=== PATIENT | male | born 1960 | race Caucasian/White ===

== ENCOUNTER 2018-10-12 10:58 | Day surgery (SDC) | payer BC, SELFPAY ==
[2018-10-08 10:46] LABS: Anion Gap 10 (5-15); BUN 25 mg/dL (7-18); BUN/Creat Ratio 18.8 RATIO (10-20); Calcium,Total 9.2 mg/dL (8.5-10.1); Chloride 101 mmol/L (98-107); Creatinine, Serum 1.33 mg/dL (0.70-1.30); EST Glomerular Filtration Rate 59 mL/min (>60); Est Glom Filt Rate - Afr Amer 72 mL/min (>60); Glucose 111 mg/dL (74-106); Potassium 2.9 mmol/L (3.5-5.1); Sodium Level 143 mmol/L (136-145)
[2018-10-12] VITALS (7 sets, daily range): BP systolic 101–127; BP diastolic 55–86; PULSE 74–88; RESP 14–18; TEMP 36.2–36.9; O2SAT 93–99; BMI 26.6
[2018-10-12 11:34] LABS: Potassium 3.3 mmol/L (3.5-5.1)
--- NOTE | 2018-10-12 12:39 | PCM.OPRPT ---
Problem List (1) Nasal congestion Status: Chronic (2) Nasal septal deviation Status: Chronic (3) Nasal bone fracture Status: Acute (4) Hypertrophy of inferior nasal turbinate Status: Chronic (5) Nasal valve collapse Status: Chronic Report of Operation Date of Procedure: 10/12/18 Pre-Operative Diagnosis: 1. nasal congestion. 2. acquired nasal deformity. 3. septal deviation. 4. inferior turbinate hypertrophy, right and left. 5. internal nasal valve dysfunction, right and left Post-Operative Diagnosis: 1. nasal congestion. 2. acquired nasal deformity. 3. septal deviation. 4. inferior turbinate hypertrophy, right and left. 5. internal nasal valve dysfunction, right and left Surgery/Procedure Performed:: 1. open septorhinoplasty. 2. open reduction nasal fracture. 3. submucous resection inferior turbinates. 4. correction nasal valve dysfunction, right and left Type of Anesthesia:: General Description of Procedure: on the day of the procedure, after appropriate informed consent was obtained, the patient was brought to the operating room and placed in supine position on the operating table. he was placed under general endotracheal anesthesia by the anesthesiologist. the endotracheal tube was secured, the eyes were taped. the nose was injected with lidocaine/epinephrine. the bilateral nasal cavities were decongested with oxymetazoline soaked pledgets. an inverted v columellar incision was made with a [place] blade. this traversed into right and left marginal incisions. the right and left lower lateral cartilages were skeletonized. the scroll region was found and the right and left upper lateral cartilages were dissected with an iris scizzor. the medial crura were lateralized and the anterior septal angle was found with the bovie. a vaughn elevator was used to develop submucoperichondrial flaps on the right then left. these went posteriorly to the bony/cartilaginous junction and inferiorly to the maxillary crest. a D-knife was used to remove the deviated portion of the cartilaginous septum. a grupo malave was used to remove deviated portions of the perpendicular plate of the ethmoid and vomer. the left upper lateral cartilage was disarticulated with the septum using a #15 blade. a 1cm by 2 mm internal domestic cleaner graft was sutured in place with 4-0 PDS. a 2mm incision was made on the right and left lateral dorsal sidewall with a [place] blade. a 2mm osteotome was used to make bilateral medial and lateral osteotomies. the marginal incision was closed with 4-0 chromic. numerous quilting sutures were made to reapproximate the submucoperichondrial flaps using 4-0 chromic. the head of the right and left inferior turbinates were injected with lidocaine/epinephrine. the head of the right inferior turbinate was incised with a #15 blade, dissected submucosally with a vaughn elevator, reduced using suction electrocautery and outfractured using a boies elevator. the head of the left inferior turbinate was incised with a #15 blade, dissected submucosally with a vaughn elevator, reduced using suction electrocautery and outfractured using a boies elevator. the latera implant trocar was loaded. skin watkins were made for placement. while everting the left ala with a double pronged skin hook, the trocar was inserted into the vestibular skin and advanced superficial to the upper lateral cartilage and nasal bones, but deep to the skin and soft tissue envelope. the trocar was removed and the vestibular skin was examined. the latera implant trocar was loaded. skin watkins were made for placement. while everting the right ala with a double pronged skin hook, the trocar was inserted into the vestibular skin and advanced superficial to the upper lateral cartilage and nasal bones, but deep to the skin and soft tissue envelope. the trocar was removed and the vestibular skin was examined. an orogastric tube was inserted and gastric/pharyngeal contents were evacuated. the patient was rotated 90 degrees toward the anesthesiologist and he was subsequently extubated uneventfully. he was transferred to the PACU in stable condition.
[2018-10-12] MEDS: Mupirocin Ointment 22gm Tube 1 APPLIC (13:00)
--- NOTE | 2018-10-12 15:32 | PCM.DC ---
You will use the following diet at home:: No restrictions Your food should be the consistency of: Regular Discharge Activity: May not drive while taking narcotic pain medications. Call your doctor if your incision/area has: Sudden Increased Bleeding Additional Dressing/Incision Instructions:: mupirocin to nostrils and incisions twice daily. nasal saline to nostrils 6 times daily. keep your nose dry - except get it very wet the morning of your follow up appointment. sleep with your head of bed elevated. Allergies/Adverse Reactions: Allergies No Known Allergies Allergy (Verified 10/05/18 10:45) Medications to take at Discharge Olmesartan/Hydrochlorothiazide [Olmesartan-Hctz 40-25 mg Tab] 1 each PO DAILY 10/05/18 Hydrocodone Bitart/Apap 5-325 [[place] 5MG-325MG] 1 tab PO Q6H 5 Days #15 tab 10/12/18 Sulfamethoxazole/Trimethoprim [Bactrim 400-80 mg Tablet] 1 ea PO BID #10 tab 10/12/18 The following prescriptions were given: Sulfamethoxazole/Trimethoprim [Bactrim 400-80 mg Tablet] 1 ea PO BID #10 tab Hydrocodone Bitart/Apap 5-325 [[place] 5MG-325MG] 1 tab PO Q6H 5 Days #15 tab Orders to be completed after discharge: Potassium Time Frame: 10/08/18, Location: Laboratory Primary Care Physician: Dipak Brady MD [Primary Care Provider] - Test Results: Test results from this visit will be discussed in further detail at your follow-up appointment, if applicable. Please Follow Up With: Thor Dominguez MD When: 1 week
--- NOTE | 2018-10-12 15:36 | DCINST_ITS ---
You will use the following diet at home:: No restrictions Your food should be the consistency of: Regular Discharge Activity: May not drive while taking narcotic pain medications. Call your doctor if your incision/area has: Sudden Increased Bleeding Additional Dressing/Incision Instructions:: mupirocin to nostrils and incisions twice daily. nasal saline to nostrils 6 times daily. keep your nose dry - except get it very wet the morning of your follow up appointment. sleep with your head of bed elevated. Allergies/Adverse Reactions: Allergies No Known Allergies Allergy (Verified 10/05/18 10:45) Medications to take at Discharge Olmesartan/Hydrochlorothiazide [Olmesartan-Hctz 40-25 mg Tab] 1 each PO DAILY 10/05/18 Hydrocodone Bitart/Apap 5-325 [[place] 5MG-325MG] 1 tab PO Q6H 5 Days #15 tab 10/12/18 Sulfamethoxazole/Trimethoprim [Bactrim 400-80 mg Tablet] 1 ea PO BID #10 tab 10/12/18 The following prescriptions were given: Sulfamethoxazole/Trimethoprim [Bactrim 400-80 mg Tablet] 1 ea PO BID #10 tab Hydrocodone Bitart/Apap 5-325 [[place] 5MG-325MG] 1 tab PO Q6H 5 Days #15 tab Orders to be completed after discharge: Potassium Time Frame: 10/08/18, Location: Laboratory Primary Care Physician: Dipak Brady MD [Primary Care Provider] - Test Results: Test results from this visit will be discussed in further detail at your follow- up appointment, if applicable. Please Follow Up With: Thor Dominguez MD When: 1 week
[2018-10-12] MEDS: HYDROcodone Bitartrate/Apap 5/325 Tablet PO (16:39)
== END 2018-10-12 17:50 | disposition home or self-care (01) ==
LOC: SDC 11:01 → AC 11:02
PROVIDERS: Anesthesiology; Family Provider Family Medicine; PCP Family Medicine; Referring Provider Otolaryngology; Visit Provider Otolaryngology
PROC: (CPT 21336; principal; 2018-10-12 12:15)
DX: M95.0 Acquired deformity of nose (principal); J34.2 Deviated nasal septum; J34.3 Hypertrophy of nasal turbinates; R09.81 Nasal congestion; I10 Essential (primary) hypertension; Z79.899 Other long term (current) drug therapy
CPT/HCPCS: 21336; 30140; 30420; 36415; 80048; 84132; 93005; J7120; J2405